=== PATIENT | male | born 1960 | race African-American/Black ===

== ENCOUNTER 2023-04-10 07:34 | Emergency (ER) | payer OTHER ==
[~2023-04-10] VITALS: Ht 175.3 cm; Wt 90.0 kg
[2023-04-10 07:37] VITALS: O2SAT 97
[2023-04-10] MEDS ORDERED: SODIUM CHLORIDE 0.9% 1,000 ML IV ONE (07:45)
[2023-04-10 08:40] LABS: BASOPHILS % 0.4 % (0.0-2.0); EOSINOPHILS % 6.3 % (0.0-5.0); HEMATOCRIT. 39.1 % (42.0-52.0); HEMOGLOBIN. 12.9 g/dL (14.0-18.0); LYMPHOCYTES % 31.8 % (20.0-50.0); MEAN CORPUSCULAR HEMOGLOBIN 30.4 pg (28.0-32.0); MEAN CORPUSCULAR VOLUME 92.1 fL (80.0-94.0); MEAN PLATELET VOLUME 6.9 fl (7.4-10.4); MONOCYTES % 8.1 % (2.0-8.0); NEUTROPHILS % 53.4 % (40.0-76.0); PLATELET 271 x1000/uL (130-400); RED BLOOD CELL COUNT 4.25 mill/uL (4.7-6.1); RED CELL DISTRIBUTION WIDTH 15.3 % (11.6-14.6); WHITE BLOOD COUNT 5.2 x1000/uL (4.5-11.0)
[2023-04-10 09:03] LABS: CALCIUM 8.7 mg/dL (8.5-10.1); CHLORIDE 107 mEq/L (98-107); INDEX HEMOLYSI 1 (1-3); INDEX ICTERIC 1 (1-4); INDEX LIPEMIC 1 (1-3); POTASSIUM 3.4 mEq/L (3.5-5.1); SODIUM 138 mEq/L (136-145)
[2023-04-10 09:11] LABS: ALANINE AMINOTRANSFERASE 16 IU/L (13-61); ALBUMIN 3.2 g/dL (3.4-5.0); ASPARTATE AMINOTRANSFERASE 12 IU/L (15-37); BILIRUBIN TOTAL 0.5 mg/dL (0.1-1.0); CARBON DIOXIDE 27 mEq/L (21-32); CREATININE 1.1 mg/dL (0.6-1.3); GLUCOSE 225 mg/dL (70-105); NT PRO B-TYPE NATRIURETIC PEP 17 pg/mL (5-125); PROTEIN TOTAL 6.9 g/dL (6.0-8.3); TROPONIN I HIGH SENSITIVITY 53 ng/L (<78); UREA NITROGEN BLOOD 14 mg/dL (7-21)
[2023-04-10] MEDS ORDERED: KETOROLAC 30MG/ML VIAL IV ONE (11:15)
[2023-04-10] MEDS ORDERED: METOCLOPRAMIDE HCL 10MG/2ML VIAL IV ONE (11:15)
[2023-04-10 12:31] LABS: TROPONIN I HIGH SENSITIVITY 56 ng/L (<78)
[2023-04-10 15:00] VITALS: BP 120/83; PULSE 95; RESP 16; TEMP 98.6
== END 2023-04-10 15:57 | disposition short-term general hospital (02) ==
LOC: ER 08:18 → EDBEDREQ 12:00 → CANBEDREQ 13:02 → ER 15:57
DX: S06.0X0A Concussion without loss of consciousness, initial encounter (principal); J45.909 Unspecified asthma, uncomplicated; E11.9 Type 2 diabetes mellitus without complications; I25.2 Old myocardial infarction; X58.XXXA Exposure to other specified factors, initial encounter; Y93.89 Activity, other specified; Y92.89 Other specified places as the place of occurrence of the external cause; Y99.8 Other external cause status
CPT/HCPCS: 80053; 82962; 83880; 85025; 84484; 36415; 71045; 70450; 93005; 96361; 96374; 96375; 99285; J1885; J2765; J7030; Z7610 ×4